=== PATIENT | male | born 1970 | race Caucasian/White ===

== ENCOUNTER 2023-07-30 11:29 | Outpatient (REF) | payer OTHER, SELFPAY ==
[2023-07-30 13:53] LABS: PSA,Total (Free>4and<10) 4.18 ng/mL (0.00-4.00); Prostate Specific Antigen 4.21 ng/mL (<0.05-4.0)
[2023-08-04 09:49] LABS: Free Prostate Spec Ag 0.5 ng/mL; Percent Free Prostate Spec Ag 12 % (calc) (>25); Prostate Specific Ag Total 4.2 ng/mL (< OR = 4.0)
== END 2023-07-30 11:30 | disposition home or self-care (01) ==
LOC: HO.LAB 11:29
PROVIDERS: Visit Provider Urology
DX: Z12.5 Encounter for screening for malignant neoplasm of prostate (principal); R97.20 Elevated prostate specific antigen [PSA]; N52.1 Erectile dysfunction due to diseases classified elsewhere; E11.69 Type 2 diabetes mellitus with other specified complication; N40.1 Benign prostatic hyperplasia with lower urinary tract symptoms; N13.8 Other obstructive and reflux uropathy
CPT/HCPCS: 36415; 84153; 84154

== ENCOUNTER 2023-08-26 15:21 | Outpatient (AMB) | payer OTHER, SELFPAY ==
--- NOTE | 2023-08-26 15:27 | MHC.OFFVIS ---
Intake Intake Visit Reasons: PSA Follow Up(set) Intake Note: Patient is Present for Follow Up PSA Urology Medication:Finasteride Antibiotic Allergies: None Blood Thinners:None Allergies No Known Allergies Allergy (Verified 08/26/23 15:28) HPI HPI Comments History of Present Illness Details Guy is a very pleasant male. He has a patient of Dr. Buitrago. He is seen for following urologic conditions - elevated PSA Has not been seen for approximately 3 years PSA 08/09 4.2 12% - PCPT Calculator - 8% high grade Recommend prostate MRI with endoDX urine DNA test Elevated PSA Prior biopsy 2017 NAD Had responded well to finasteride Associated side effects regarding libido Has reduced dosage significantly Review of Systems Const Denies chills and Denies fever(s) Card Reports no additional complaints and Denies syncope Resp Denies cough GI Denies abdominal pain and Denies heartburn Reports as per HPI and Denies change in libido Neuro Denies syncope Psych Denies change in libido Endo Denies change in libido Physical Exam Const General: cooperative, healthy appearing, comfortable and no acute distress Orientation/consciousness: patient oriented x3 HEENT Face and sinus: Yes normal facial exam Mouth: moist mucous membranes Neck Neck: Yes normal visual inspection, Yes full ROM and Yes trachea midline Chest Chest palpation & inspection: normal inspection of the chest Resp Effort & Inspection: normal respiratory effort, able to speak in complete sentences and no respiratory distress GI Inspection: Yes normal to inspection Back/Spine/Pelvis Cervical Spine: normal cervical lordosis Thoracic/Lumbar Spine: thoracic and lumbar spine normal to inspection Skin General skin exam: no rashes or lesions noted Neuro General: patient oriented x3, gait normal, tone normal and moves all extremities Extrem General: Yes normal to inspection and Yes capillary refill normal Assessment & Plan Assessment & Plan (1) Elevated PSA: Code(s): R97.20 - Elevated prostate specific antigen [PSA] Plan Plan prostate MRI Endo DX Orders: Orders MR pelvis wo/w con 08/26/23 R97.20 - Elevated prostate specific antigen [PSA] Patient Instructions: Imaging studies, laboratory and physical exam results were discussed and reviewed in detail. No major barriers to patient understanding were identified. An opportunity to ask questions regarding the treatment plan was provided. All questions were answered. The patient expressed understanding and agreement with the above treatment plan. The patient is aware they should contact our office by phone for worsening of their current condition or the appearance of new urologic symptoms. Compliance is encouraged with any medications and followup testing that is ordered. It is a privilege to participate in the urologic care of your patient. If you have any questions or concerns regarding treatment for the above conditions, or other urologic issues, please do not hesitate to contact me. The office telephone contact is [phone]. This note is constructed using voice recognition software. While every effort has been made to ensure accuracy factory maintenance technician errors may have been included. Yours sincerely, Dr Franco Todd MD, [facility] - Urology Providers of Expert, Compassionate Care for the Genitourinary System Coding Level of Care Code Est Pt Level 4 (44435) Diagnoses Elevated PSA R97.20
== END 2023-08-26 16:23 | disposition home or self-care (01) ==
PROVIDERS: Visit Provider Urology
DX: R97.20 Elevated prostate specific antigen [PSA] (principal)
CPT/HCPCS: 99213

== ENCOUNTER → 2023-08-26 15:21 | Outpatient (BNVA) | payer OTHER, SELFPAY | PROVIDERS: Visit Provider Urology ==

== ENCOUNTER 2023-10-28 14:59 | Outpatient (AMB) | payer OTHER, SELFPAY ==
--- NOTE | 2023-10-28 15:01 | MHC.OFFVIS ---
Intake Visit Reasons: 2m/MRI([facility] 09/29) Intake Note: Patient is Present for Telephone Follow Up For Urology Med: Finasteride, Sildenafil Antibiotic Allergy:None Blood Thinner: None Allergies No Known Allergies Allergy (Verified 08/26/23 15:28) Medication List - Last Reconciled 10/28/23 by Franco Todd MD finasteride 5 mg PO DAILY 90 days sildenafil 100 mg PO ONCE PRN 30 days HPI Comments Details: Guy is a very pleasant male. He has a patient of Dr. Buitrago. He is seen for following urologic conditions - elevated PSA Telemedicine Evaluation 15 min Consultation [employer] Discussed MRI results BPH and prostate enlargement Continued to track PSA 6 months Has not been seen for approximately 3 years PSA 08/09 4.2 12% - PCPT Calculator - 8% high grade Elevated PSA Prior biopsy 2017 NAD Had responded well to finasteride Associated side effects regarding libido Has reduced dosage significantly Imaging - 10/09 prostate MRI with 54 g prostate, PSA density less than 0.1, central nodules consistent with BPH Review of Systems Const All systems reviewed & are unremarkable except as noted in HPI and below Reports no additional complaints Resp Reports no additional complaints GI Reports no additional complaints Reports as per HPI Musc Reports no additional complaints Physical Exam Telemedicine evaluation Appropriate responses Regular breathing rate and rhythm HEENT Head: Yes normal to inspection Ears: hearing grossly normal bilaterally Eyes General: appearance normal, both eyes and all related structures Neck Neck: Yes normal visual inspection Chest Chest palpation & inspection: normal inspection of the chest Resp Effort & Inspection: normal respiratory effort and able to speak in complete sentences Telehealth Telehealth Telehealth Platform: [employer] Location of provider rendering services: practice address Location of patient: address on file Patient Identification confirmed using: Name, : Yes Telehealth method: video Patient verbally consented to treatment: Yes Patient verbally consented to billing insurance company: Yes Patient informed of any privacy concerns related to visit: Yes Minutes spent on Phone/Video with Pt.: 15 Assessment & Plan Assessment & Plan (1) BPH w urinary obs/LUTS: Code(s): N40.1 - Benign prostatic hyperplasia with lower urinary tract symptoms; N13.8 - Other obstructive and reflux uropathy Category: Medical (2) Erectile dysfunction: Code(s): N52.9 - Male erectile dysfunction, unspecified Category: Medical Plan Six-month follow-up PSA tele Orders: Orders Prostate Specific Antigen 6 Months R97.20 - Elevated prostate specific antigen [PSA] PSA,Total (Free>4and<10) 6 Months R97.20 - Elevated prostate specific antigen [PSA] Patient Instructions: Imaging studies, laboratory and physical exam results were discussed and reviewed in detail. No major barriers to patient understanding were identified. An opportunity to ask questions regarding the treatment plan was provided. All questions were answered. The patient expressed understanding and agreement with the above treatment plan. The patient is aware they should contact our office by phone for worsening of their current condition or the appearance of new urologic symptoms. Compliance is encouraged with any medications and followup testing that is ordered. It is a privilege to participate in the urologic care of your patient. If you have any questions or concerns regarding treatment for the above conditions, or other urologic issues, please do not hesitate to contact me. The office telephone contact is [phone]. This note is constructed using voice recognition software. While every effort has been made to ensure accuracy wet mix operator errors may have been included. Yours sincerely, Dr Franco Todd MD, [facility] - Urology Providers of Expert, Compassionate Care for the Genitourinary System Coding Level of Care Code Tele Est Pt Level 3 (88848) Diagnoses BPH w urinary obs/LUTS N40.1; N13.8 Erectile dysfunction N52.9
== END 2023-10-28 16:02 | disposition home or self-care (01) ==
LOC: HO.HUSH 14:59
PROVIDERS: Visit Provider Urology
DX: N40.1 Benign prostatic hyperplasia with lower urinary tract symptoms (principal); N13.8 Other obstructive and reflux uropathy; N52.9 Male erectile dysfunction, unspecified
CPT/HCPCS: 99213

== ENCOUNTER → 2023-10-28 14:59 | Outpatient (BNVA) | payer OTHER, SELFPAY | PROVIDERS: Visit Provider Urology ==

== ENCOUNTER 2025-01-28 07:22 | Outpatient (REF) | payer OTHER, SELFPAY ==
[2025-01-28 09:20] LABS: PSA,Total (Free>4and<10) 2.19 ng/mL (0.00-4.00); Prostate Specific Antigen 2.36 ng/mL (<0.05-4.0)
== END 2025-01-28 07:23 | disposition home or self-care (01) ==
LOC: HO.LAB 07:22
PROVIDERS: Visit Provider Urology
DX: N40.1 Benign prostatic hyperplasia with lower urinary tract symptoms (principal); N13.8 Other obstructive and reflux uropathy; R97.20 Elevated prostate specific antigen [PSA]; N52.9 Male erectile dysfunction, unspecified; Z12.5 Encounter for screening for malignant neoplasm of prostate
CPT/HCPCS: 36415; 84153; 84403

== ENCOUNTER 2025-02-22 14:27 | Outpatient (AMB) | payer OTHER, SELFPAY ==
--- NOTE | 2025-02-22 14:27 | MHC.OFFVIS ---
Intake Visit Reasons: 6m/labs Intake Note: Patient is Present for 6 mo follow up Telephone Urology Med: Finasteride, Sildenafil Antibiotic Allergy:None Blood Thinner: None Labs done 01/28/25 PSA 2.36, Total testosterone 610, Total PSA 2.19 Junior Legal Secretary Required: No Accompanied by: Self / Same As Patient Allergies No Known Allergies Allergy (Verified 02/22/25 14:28) HPI Comments Details: Guy is a very pleasant male. He has a patient of Dr. Buitrago. He is seen for following urologic conditions - elevated PSA Telemedicine Evaluation 15 min Consultation [employer] PSA shows stability Review in 12 month We will try to reduce finasteride to minimally effective dose - /2 tab Friday, Friday, Friday Discussed testosterone result within normal range PSA 08/09 4.2 12% - PCPT Calculator - 8% high grade, 02/10 2.2 T 610 Elevated PSA Prior biopsy 2017 NAD Had responded well to finasteride Associated side effects regarding libido Has reduced dosage significantly Imaging - 10/09 prostate MRI with 54 g prostate, PSA density less than 0.1, central nodules consistent with BPH Review of Systems Const All systems reviewed & are unremarkable except as noted in HPI and below Reports no additional complaints Resp Reports no additional complaints GI Reports no additional complaints Reports as per HPI Musc Reports no additional complaints Physical Exam Telemedicine evaluation Appropriate responses Regular breathing rate and rhythm HEENT Head: Yes normal to inspection Ears: hearing grossly normal bilaterally Eyes General: appearance normal, both eyes and all related structures Neck Neck: Yes normal visual inspection Chest Chest palpation & inspection: normal inspection of the chest Resp Effort & Inspection: normal respiratory effort and able to speak in complete sentences Telehealth Telehealth Telehealth Platform: [employer] Location of provider rendering services: practice address Location of patient: address on file Patient Identification confirmed using: Name, : Yes Telehealth method: video Patient verbally consented to treatment: Yes Patient verbally consented to billing insurance company: Yes Patient informed of any privacy concerns related to visit: Yes Minutes spent on Phone/Video with Pt.: 15 Assessment & Plan Assessment & Plan (1) Erectile dysfunction: Code(s): N52.9 - Male erectile dysfunction, unspecified Category: Medical (2) Elevated PSA: Code(s): R97.20 - Elevated prostate specific antigen [PSA] Category: Medical (3) BPH w urinary obs/LUTS: Code(s): N40.1 - Benign prostatic hyperplasia with lower urinary tract symptoms; N13.8 - Other obstructive and reflux uropathy Category: Medical Plan Twelve month follow-up PSA office Orders: Orders Prostate Specific Antigen 12 Months R97.20 - Elevated prostate specific antigen [PSA] Patient Instructions: This note is constructed using voice recognition software. While every effort has been made to ensure accuracy die equipment operator errors may have been included. Imaging studies, laboratory and physical exam results were discussed and reviewed in detail. No major barriers to patient understanding were identified. An opportunity to ask questions regarding the treatment plan was provided. All questions were answered. The patient expressed understanding and agreement with the above treatment plan. The patient is aware they should contact our office by phone for worsening of their current condition or the appearance of new urologic symptoms. Compliance is encouraged with any medications and followup testing that is ordered. It is a privilege to participate in the urologic care of your patient. If you have any questions or concerns regarding treatment for the above conditions, or other urologic issues, please do not hesitate to contact me. The office telephone contact is [phone]. Sincerely, Dr Franco Todd MD, [facility] - Urology Compassionate Specialist Care for the Genitourinary System Coding Level of Care Code Tele Est Pt Level 3 (27337) Complex EM visit Add On G2211 Diagnoses Erectile dysfunction N52.9 Elevated PSA R97.20 BPH w urinary obs/LUTS N40.1; N13.8
== END 2025-02-22 15:45 | disposition home or self-care (01) ==
PROVIDERS: Visit Provider Urology
DX: N52.9 Male erectile dysfunction, unspecified (principal); R97.20 Elevated prostate specific antigen [PSA]; N40.1 Benign prostatic hyperplasia with lower urinary tract symptoms; N13.8 Other obstructive and reflux uropathy
CPT/HCPCS: 99213